=== PATIENT | female | born 1950 | race Caucasian/White ===

== ENCOUNTER → 2019-03-18 | Outpatient (CLI) | payer MEDICARE ==
[~2019-03-18] MED LIST: DIGOXIN250 MCG PO; ESCITALOPRAM OX20 MG PO; FUROSEMIDE40 MG PO; IOPAMIDOL 300MG/ML 100 ML INFUS..BTL IV ONE; K DUR10 MEQ PO; LIDOCAINE HCL 1% LOCAL INJ 20 ML VIAL ONE; LISINOPRIL10 MG PO; METOPROLOL TART75 MG PO; PRAVASTATIN SOD40 MG PO; XARELTO20 MG PO
--- NOTE | 2019-03-18 14:57 | Diagnostic Imaging Report ---
EXAM: CT Pelvis WITHOUT intravenous contrast INDICATION: Abscess COMPARISON: Abscess drainage 02/17/2019 TECHNIQUE: Pelvis were scanned utilizing a multidetector helical scanner from the iliac crest to the pubic symphysis without administration of IV contrast. Coronal and sagittal reformations were obtained. Routine protocol was performed. IV CONTRAST: None ORAL CONTRAST: None RADIATION DOSE: Total DLP: 480 mGy*cm COMPLICATIONS: None FINDINGS: There has been interval resolution of the previously seen right iliacus collection. Drainage catheter remains in place with no surrounding focal fluid collection. Otherwise, no acute findings in the pelvis. Diffuse subcutaneous soft tissue edema. IMPRESSION: Interval resolution of previously seen right iliac is collection. We will proceed with contrast injection of the indwelling drainage catheter to exclude fistula to bowel with subsequent removal if negative. Signed by: Nolberto Dempsey MD on 03/18/2019 2:54 PM
--- NOTE | 2019-03-18 16:58 | Diagnostic Imaging Report ---
PROCEDURE: Drainage evaluation and removal COMPARISON: CT pelvis of the same day. INDICATION: Iliacus abscess Jd Edwards Developer: Nolberto Dempsey MD Radiation Details: Fluoroscopy time: 0.7 minutes Cumulative dose: 17.2 mGy FINDINGS: The indwelling drainage catheter was injected with contrast ([id number]) which demonstrated no significant residual abscess collection and no evidence of fistula with bowel. The drainage catheter was severed and removed. Sterile dressing was applied. CONCLUSION: Successful drain evaluation and removal of right lower quadrant abscess drain. Signed by: Nolberto Dempsey MD on 03/18/2019 4:56 PM
== END ==
LOC: DX 13:32
PROVIDERS: ATTEND Internal Medicine
DX: L02.211 Cutaneous abscess of abdominal wall (principal)
CPT/HCPCS: 72192; 76080; Q9967; J2001